=== PATIENT | female | born 2000 | race Caucasian/White ===

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

== ENCOUNTER 2022-11-17 17:50 | Emergency (ER) | payer BC ==
[~2022-11-17] VITALS: Ht 167.6 cm; Wt 77.1 kg
== END 2022-11-17 21:51 | disposition left against medical advice (07) ==
LOC: ED 17:50
DX: M25.571 Pain in right ankle and joints of right foot (principal); Z88.0 Allergy status to penicillin; Z53.21 Procedure and treatment not carried out due to patient leaving prior to being seen by health care provider

== ENCOUNTER → 2023-06-07 | Outpatient (CLI) | payer BC ==
[2023-06-07 12:33] LABS: HEMATOCRIT 42.6 % (37.0-47.0); MEAN CELL VOLUME 86.6 fl (81.0-99.0); MEAN CORPUSCULAR HGB 28.5 pg (27.0-31.0); MEAN CORPUSCULAR HGB CONC 32.9 g/dl (33.0-37.0); RED BLOOD COUNT 4.92 10*6/uL (4.10-5.10); RED CELL DISTRI WIDTH 13.1 % (0-14.5); WHITE BLOOD COUNT 8.2 10*3/uL (4.8-10.8)
[2023-06-07 13:06] LABS: ALKALINE PHOSPHATASE 105 U/L (46-116); BUN 8 mg/dl (9-23); CHLORIDE 106 mmol/L (98-107); CHOLESTEROL 194 mg/dL (<200); FREE T4 1.08 ng/dl (0.89-1.76); LDL CHOLESTEROL 109 mg/dL (9-159); POTASSIUM 4.1 mmol/L (3.4-5.1); SGPT/ALT 87 U/L (5-49); TOTAL PROTEIN 7.2 gm/dL (6.0-8.0); TRIGLYCERIDES 178 mg/dl (<150)
[2023-06-07 13:07] LABS: VITAMIN D, 25-HYDROXY 17.4 ng/mL (30-100)
[2023-06-12 02:07] LABS: TESTOSTERONE FREE, (DIRECT) 2.1 pg/mL (0.0-4.2)
== END | disposition home or self-care (01) ==
LOC: LAB 11:58
PROVIDERS: ATTEND Family Medicine
DX: Z13.220 Encounter for screening for lipoid disorders (principal); R10.9 Unspecified abdominal pain; K21.9 Gastro-esophageal reflux disease without esophagitis; E66.9 Obesity, unspecified; R53.83 Other fatigue; L68.0 Hirsutism